=== PATIENT | male | born 1940 | race Caucasian/White ===

== ENCOUNTER 2018-03-14 02:06 | Inpatient (IN) | payer SELFPAY ==
[~2018-03-14] VITALS: Ht 172.7 cm; Wt 76.2 kg
[~2018-03-14 02:06] MED LIST: ATORVASTATIN CA10 MG PO; VIAGRA50 MG PO
--- NOTE | 2018-03-14 02:42 | Emergency Room Report ---
History of Present Illness General Chief Complaint: Headache Source: Patient Present Illness HPI Patient is 77-year-old male who presented after increased headache. The patient reports having onset approximately 5:00 in the morning approximately 20 hours prior to arrival. He reports having prior history of COPD. The patient is also diabetic. He reports having worsening headache. The patient's states that he had been increasingly confused. The patient continues to be a smoker. He reportedly had a prior lung surgery with resection. Patient is followed by Dr. Ángel Link patient is able to state with is doctor is. The patient had prior history of transient ischemic attack Allergies: Coded Allergies: No Known Allergies (Unverified , 04/16/12) Patient History Past Medical History: see triage record Reviewed Nursing Documentation: PMH: Agreed; PSxH: Agreed Nursing Documentation-PMH Hx COPD: Yes - UPPER RT LOBE PARTIAL LOBECTOMY Hx Diabetes: Yes Review of Systems All Other Systems: negative except mentioned in HPI Physical Exam Vital Signs Date Time Temp Pulse Resp B/P (MAP) Pulse Ox O2 Delivery O2 Flow Rate FiO2 03/14/18 02:16 98.1 88 16 204/ 97 Room Air Sp02 EP Interpretation: reviewed, normal General Appearance: normal inspection, alert, GCS 15, Chronically Ill Head: atraumatic ENT: normal ENT inspection, hearing grossly normal, normal voice Neck: normal inspection, full range of motion, supple, no bony tend Respiratory: normal inspection, no respiratory distress, no retraction, wheezing Cardiovascular #1: regular rate, rhythm, no edema Gastrointestinal: normal inspection, normal bowel sounds, non tender, soft, no guarding, no hernia Genitourinary: no CVA tenderness Musculoskeletal: normal inspection, back normal, normal range of motion Neurologic: normal inspection, alert, responsive, speech normal Psychiatric: normal inspection, judgement/insight normal, mood/affect normal Skin: normal inspection, normal color, no rash Medical Decision Making Diagnostic Impression: Primary Impression: Altered mental status ER Course Patient was in for altered mental status. Differential diagnosis included but was not limited to ischemic stroke, subarachnoid hemorrhage, hypoglycemia, spinal cord injury, neurodegenerative disorder, urinary tract infection, hypoxemia.Because of complexity of patient's case laboratory testing and imaging studies were ordered.The patient noted to have severe headache. The patient noted have elevated white blood count.The patient was given IV medications for headache. CT the head read by radiology showed no evidence of acute intracranial hemorrhage or CVA Dr. Luke was contacted for inpatient management due to panel physician. Laboratory Tests Test 03/14/18 18:17 03/15/18 14:50 03/16/18 07:10 Arterial Blood pH 7.438 (7.350-7.450) Arterial Blood Partial Pressure CO2 34.0 mmHg (35.0-45.0) L Arterial Blood Partial Pressure O2 70.3 mmHg (75.0-100.0) L Arterial Blood HCO3 22.5 mmol/L (22.0-26.0) Arterial Blood Oxygen Saturation 93.9 % (95-100) L Arterial Blood Base Excess -1.0 (-2-2) Juan Test Positive C-Reactive Protein, Quantitative < 0.4 mg/dL (0.00-0.90) White Blood Count 14.2 K/UL (4.8-10.8) H Red Blood Count 4.77 M/UL (4.70-6.10) Hemoglobin 14.3 G/DL (14.2-18.0) Hematocrit 42.2 % (42.0-52.0) Mean Corpuscular Volume 88 FL (80-99) Mean Corpuscular Hemoglobin 30.0 PG (27.0-31.0) Mean Corpuscular Hemoglobin Concent 33.9 G/DL (32.0-36.0) Red Cell Distribution Width 11.7 % (11.6-14.8) Platelet Count 372 K/UL (150-450) Mean Platelet Volume 5.1 FL (6.5-10.1) L Neutrophils (%) (Auto) 70.4 % (45.0-75.0) Lymphocytes (%) (Auto) 20.8 % (20.0-45.0) Monocytes (%) (Auto) 8.2 % (1.0-10.0) Eosinophils (%) (Auto) 0.2 % (0.0-3.0) Basophils (%) (Auto) 0.4 % (0.0-2.0) Sodium Level 140 MMOL/L (136-145) Potassium Level 3.3 MMOL/L (3.5-5.1) L Chloride Level 102 MMOL/L (98-107) Carbon Dioxide Level 26 MMOL/L (21-32) Anion Gap 12 mmol/L (5-15) Blood Urea Nitrogen 29 mg/dL (7-18) H Creatinine 1.1 MG/DL (0.55-1.30) Estimate Glomerular Filtration Rate mL/min (>60) Glucose Level 122 MG/DL (74-106) H Hemoglobin A1c 7.3 % (4.3-6.0) H Uric Acid 5.2 MG/DL (2.6-7.2) Calcium Level 9.3 MG/DL (8.5-10.1) Phosphorus Level 3.5 MG/DL (2.5-4.9) Magnesium Level 2.0 MG/DL (1.8-2.4) Total Bilirubin 0.4 MG/DL (0.2-1.0) Aspartate Amino Transferase (AST) 15 U/L (15-37) Alanine Aminotransferase (ALT) 16 U/L (12-78) Alkaline Phosphatase 120 U/L (46-116) H Troponin I 0.017 ng/mL (0.000-0.056) Pro-B-Type Natriuretic Peptide 319 pg/mL (0-125) H Total Protein 7.7 G/DL (6.4-8.2) Albumin 3.4 G/DL (3.4-5.0) Globulin 4.3 g/dL Albumin/Globulin Ratio 0.8 (1.0-2.7) L Triglycerides Level 221 MG/DL (30-150) H Cholesterol Level 252 MG/DL (< 200) H LDL Cholesterol 173 mg/dL (<100) H HDL Cholesterol 40 MG/DL (40-60) Cholesterol/HDL Ratio 6.3 (3.3-4.4) H Vitamin B12 Level 407 PG/ML (193-986) Folate 3.8 NG/ML (8.6-58.9) L Thyroid Stimulating Hormone (TSH) 2.559 uiU/mL (0.358-3.740) EKG Diagnostic Results Rate: normal Rhythm: NSR ST Segments: no acute changes Last Vital Signs Date Time Temp Pulse Resp B/P (MAP) Pulse Ox O2 Delivery O2 Flow Rate FiO2 03/14/18 02:16 98.1 88 16 204/ 97 Room Air Status: unchanged Disposition: ADMITTED INPATIENT Condition: Serious Antonio Hatch MD Mar 14, 2018 02:42
[2018-03-14] MEDS ORDERED: Sodium Chloride 500ML 500 ML IV ONE (02:45)
[2018-03-14] MEDS ORDERED: Albuterol/Ipratropium 3ml neb HHN ONE (02:45)
[2018-03-14] MEDS ORDERED: Dexamethasone 4mg/ml vial IVP ONE (02:45)
[2018-03-14] MEDS ORDERED: Ketorolac 30mg Inj IV ONE (02:45)
[2018-03-14 03:00] VITALS: BP 208/103
[2018-03-14 03:19] LABS: ANION GAP 11 mmol/L (5-15); BLOOD UREA NITROGEN 19 mg/dL (7-18); CALCIUM 9.1 MG/DL (8.5-10.1); CARBON DIOXIDE 26 MMOL/L (21-32); CHLORIDE 101 MMOL/L (98-107); CREATININE 1.3 MG/DL (0.55-1.30); POTASSIUM 3.8 MMOL/L (3.5-5.1); SODIUM 138 MMOL/L (136-145)
[2018-03-14 03:29] LABS: BASOPHILS % (AUTO) 0.4 % (0.0-2.0); EOSINOPHILS % (AUTO) 0.3 % (0.0-3.0); HEMOGLOBIN 14.4 G/DL (14.2-18.0); LYMPHOCYTES % (AUTO) 11.3 % (20.0-45.0); MEAN CORPUSCULAR VOLUME 88 FL (80-99); MONOCYTES % (AUTO) 5.9 % (1.0-10.0); NEUTROPHILS % (AUTO) 82.1 % (45.0-75.0); PLATELET COUNT 382 K/UL (150-450); RED BLOOD COUNT 4.87 M/UL (4.70-6.10); RED CELL DISTRIBUTION WIDTH 11.8 % (11.6-14.8); WHITE BLOOD COUNT 15.7 K/UL (4.8-10.8)
[2018-03-14 03:32] LABS: ALANINE AMINOTRANSFERASE 13 U/L (12-78); ALBUMIN 3.8 G/DL (3.4-5.0); ALBUMIN/GLOBULIN RATIO 0.9 (1.0-2.7); ALKALINE PHOSPHATASE 152 U/L (46-116); ASPARTATE AMINO TRANSFERASE 11 U/L (15-37); BILIRUBIN,TOTAL 0.4 MG/DL (0.2-1.0)
[2018-03-14] MEDS ORDERED: Metoclopramide 10mg/2ml Inj IVP ONE (03:45)
[2018-03-14] MEDS ORDERED: Morphine Sulfate 2mg/ml Inj IVP ONE (03:45)
[2018-03-14] MEDS ORDERED: DiphenhydrAMINE 50mg/ml Inj ONE (03:53)
[2018-03-14] MEDS ORDERED: DiphenhydrAMINE 50mg/ml Inj IVP ONE (04:00)
[2018-03-14 04:07] LABS: APPEARANCE,URINE CLEAR; BILIRUBIN, URINE NEGATIVE (NEGATIVE); COLOR,URINE PALE YELLOW; GLUCOSE, URINE (UA) 1+ (NEGATIVE); KETONES,URINE 2+ (NEGATIVE); LEUKOCYTE ESTERASE ,URINE NEGATIVE (NEGATIVE); NITRITE,URINE NEGATIVE (NEGATIVE); PH,URINE 6 (4.5-8.0); PROTEIN,URINE 2+ (NEGATIVE); UROBILINOGEN,URINE NORMAL MG/DL (0.0-1.0)
[2018-03-14] MEDS ORDERED: cefTRIAXone 1 GM in NS 55 ML IVPB ONE (04:15)
[2018-03-14 05:00] VITALS: BP 176/139
[2018-03-14 06:04] VITALS: BP 164/61
[2018-03-14 06:53] VITALS: BP 155/71
[2018-03-14 07:44] VITALS: BP 160/72
--- NOTE | 2018-03-14 09:55 | Diagnostic Imaging Report ---
Indication: Headache Technique: Contiguous 5 mm thick transaxial imaging of the head obtained in a Siemens Sensation [address] scanner. Soft tissue and bone windows generated. Automatic Exposure Control was utilized. Total Dose length Product (DLP): 1526.[address] Dose Index Volume (CTDIvol): 70.38 mGy Comparison: none Findings: There is mild prominence of the ventricles, basal cisterns, and cerebral sulci consistent with atrophy. Mild, nonspecific, white matter hypoattenuation is noted throughout the brain consistent with chronic small vessel disease. There is no midline shift, edema, acute hemorrhage, mass effect, or abnormal extra-axial fluid collections. Bones and extra osseous soft tissues are unremarkable. Impression: No acute intracranial bleed, mass effect or edema. Mild atrophy of the brain. Nonspecific white matter hypoattenuation probably due to chronic small vessel disease. The study is significantly limited by motion. [facility] has communicated the preliminary results to the Emergency Department. Their findings are largely concordant with this report. The CT scanner at [facility] is accredited by the [employer] and the scans are performed using dose optimization techniques as appropriate to a performed exam including Automatic Exposure control.
[2018-03-14] MEDS ORDERED: Azithromycin 250mg tab ORAL SCH (10:21)
--- NOTE | 2018-03-14 10:36 | Consultation ---
Consult Note Consult Note asked to eval for management of high BP and proteinuria Patient is 77-year-old male who presented after increased headache. The patient reports having onset approximately 5:00 in the morning approximately 20 hours prior to arrival. He reports having prior history of COPD. The patient is also diabetic. He reports having worsening headache. The patient's states that he had been increasingly confused. The patient continues to be a smoker. He reportedly had a prior lung surgery with resection. Patient is followed by Dr. Ángel Link patient is able to state with is doctor is. The patient had prior history of transient ischemic attack Hx COPD: Yes - UPPER RT LOBE PARTIAL LOBECTOMY Hx Diabetes: Yes Assessment/Plan exacerbation COPD DM HTN ooc Proteinuria (DM / HTN related) h/o TIA Norvasc for bp CXR asa protonix perorders José Antonio Forrest MD Mar 14, 2018 10:35
[2018-03-14] MEDS ORDERED: HydrALAZINE 25mg tab ORAL PRN (10:45)
[2018-03-14] MEDS: Aspirin Baby 81mg ORAL SCH (10:48)
--- NOTE | 2018-03-14 11:44 | Diagnostic Imaging Report ---
Indication: Dyspnea Comparison: None A single view chest radiograph was obtained. Findings: No definite infiltrate or pulmonary vascular congestion identified. The heart is borderline enlarged. The aorta is mildly enlarged consistent with atherosclerotic vascular disease. The bones are osteopenic. Impression: No acute disease
[2018-03-14] MEDS ORDERED: LORazepam Inj 2mg/ml 1ml IV PRN (12:45)
[2018-03-14] MEDS: LORazepam Inj 2mg/ml 1ml IV PRN ×2 (13:14→22:15)
[2018-03-14] MEDS: Haloperidol 5mg/ml Inj IM PRN ×2 (13:14→23:43)
[2018-03-14] MEDS ORDERED: Morphine Sulfate 2mg/ml Inj IVP PRN (13:35)
--- NOTE | 2018-03-14 13:51 | Consultation ---
History of Present Illness General Date patient seen: Mar 14, 2018 Chief Complaint: Headache Present Illness HPI 77-year-old male who presented after increased headache. the pt has hx of stroke. the pt was agitated and combative The patient reports having onset approximately 5:00 in the morning approximately 20 hours prior to arrival. He reports having prior history of COPD. The patient is also diabetic. He reports having worsening headache. The patient's states that he had been increasingly confused. Allergies: Coded Allergies: No Known Allergies (Unverified , 04/16/12) Medication History Scheduled Atorvastatin Calcium* (Lipitor*), 10 MG PO QHS, (Reported) Sildenafil Citrate (Viagra), 50 MG PO DAILY, (Reported) Patient History Limited by: medical condition History Provided By: Patient, Family Member, Medical Record, PMD Healthcare decision maker Resuscitation status Advanced Directive on File Past Medical/Surgical History Past Medical/Surgical History: (1) Altered mental status Review of Systems Psychiatric: Reports: prior hx, anxiety, depressed feelings, emotional problems , hallucinations Physical Exam General Appearance: alert, confused, moderate distress, agitated Neurologic: oriented x 3, responsive, depressed affect Last 24 Hour Vital Signs Date Time Temp Pulse Resp B/P (MAP) Pulse Ox O2 Delivery O2 Flow Rate FiO2 03/14/18 11:19 98.0 03/14/18 10:48 86 158/94 03/14/18 08:00 83 03/14/18 07:44 98.0 81 20 160/72 100 Room Air 03/14/18 06:53 97.4 69 18 155/71 100 Room Air 03/14/18 06:50 98.2 69 18 154/71 100 Room Air 03/14/18 06:04 98.4 79 20 164/61 100 Room Air 03/14/18 05:00 98.4 88 20 176/139 100 Room Air 03/14/18 03:00 98.1 87 20 208/103 99 Room Air 03/14/18 02:55 204/103 03/14/18 02:50 86 20 99 Room Air 21 03/14/18 02:40 84 20 Room Air 21 03/14/18 02:40 84 20 97 Room Air 21 03/14/18 02:16 98.1 88 16 204/83 97 Room Air Laboratory Tests Test 03/14/18 02:50 03/14/18 04:01 White Blood Count 15.7 K/UL (4.8-10.8) H Red Blood Count 4.87 M/UL (4.70-6.10) Hemoglobin 14.4 G/DL (14.2-18.0) Hematocrit 43.0 % (42.0-52.0) Mean Corpuscular Volume 88 FL (80-99) Mean Corpuscular Hemoglobin 29.6 PG (27.0-31.0) Mean Corpuscular Hemoglobin Concent 33.5 G/DL (32.0-36.0) Red Cell Distribution Width 11.8 % (11.6-14.8) Platelet Count 382 K/UL (150-450) Mean Platelet Volume 5.5 FL (6.5-10.1) L Neutrophils (%) (Auto) 82.1 % (45.0-75.0) H Lymphocytes (%) (Auto) 11.3 % (20.0-45.0) L Monocytes (%) (Auto) 5.9 % (1.0-10.0) Eosinophils (%) (Auto) 0.3 % (0.0-3.0) Basophils (%) (Auto) 0.4 % (0.0-2.0) Erythrocyte Sedimentation Rate 15 MM/HR (0-20) Prothrombin Time 10.6 SEC (9.30-11.50) Prothromb Time International Ratio 1.0 (0.9-1.1) Activated Partial Thromboplast Time 31 SEC (23-33) Sodium Level 138 MMOL/L (136-145) Potassium Level 3.8 MMOL/L (3.5-5.1) Chloride Level 101 MMOL/L (98-107) Carbon Dioxide Level 26 MMOL/L (21-32) Anion Gap 11 mmol/L (5-15) Blood Urea Nitrogen 19 mg/dL (7-18) H Creatinine 1.3 MG/DL (0.55-1.30) Estimat Glomerular Filtration Rate mL/min (>60) Glucose Level 158 MG/DL (74-106) H Calcium Level 9.1 MG/DL (8.5-10.1) Total Bilirubin 0.4 MG/DL (0.2-1.0) Aspartate Amino Transf (AST/SGOT) 11 U/L (15-37) L Alanine Aminotransferase (ALT/SGPT) 13 U/L (12-78) Alkaline Phosphatase 152 U/L (46-116) H Troponin I 0.000 ng/mL (0.000-0.056) Total Protein 8.2 G/DL (6.4-8.2) Albumin 3.8 G/DL (3.4-5.0) Globulin 4.4 g/dL Albumin/Globulin Ratio 0.9 (1.0-2.7) L Thyroid Stimulating Hormone (TSH) 1.048 uiU/mL (0.358-3.740) Urine Color Pale yellow Urine Appearance Clear Urine pH 6 (4.5-8.0) Urine Specific [place] 1.020 (1.005-1.035) Urine Protein 2+ (NEGATIVE) H Urine Glucose (UA) 1+ (NEGATIVE) H Urine Ketones 2+ (NEGATIVE) H Urine Blood 1+ (NEGATIVE) H Urine Nitrite Negative (NEGATIVE) Urine Bilirubin Negative (NEGATIVE) Urine Urobilinogen Normal MG/DL (0.0-1.0) Urine Leukocyte Esterase Negative (NEGATIVE) Urine RBC 2-4 /HPF (0 - 0) H Urine WBC 0-2 /HPF (0 - 0) Urine Squamous Epithelial Cells None /LPF (NONE/OCC) Urine Bacteria None /HPF (NONE) Urine Opiates Screen Positive (NEGATIVE) H Urine Barbiturates Screen Negative (NEGATIVE) Phencyclidine (PCP) Screen Negative (NEGATIVE) Urine Amphetamines Screen Negative (NEGATIVE) Urine Benzodiazepines Screen Negative (NEGATIVE) Urine Cocaine Screen Negative (NEGATIVE) Urine Marijuana (THC) Screen Negative (NEGATIVE) Microbiology Date/Time Source Procedure Growth Status 03/14/18 03:55 Nasal Nares Influenza Types A,B Antigen (SANDI) - Final Complete Height (Feet): 5 Height (Inches): 8.00 Weight (Pounds): 168 Medications Current Medications Medications (Trade) Dose Ordered Sig/Jatinder Route PRN Reason Start Time Stop Time Status Last Admin Dose Admin Acetaminophen (Tylenol) 650 mg Q4H PRN ORAL Mild Pain/Temp > 100.5 03/14/18 10:30 04/13/18 10:29 03/14/18 10:49 Amlodipine Besylate (Norvasc) 10 mg DAILY ORAL 03/15/18 09:00 04/14/18 08:59 Aspirin (ASA) 81 mg DAILY ORAL 03/14/18 10:38 04/13/18 10:37 03/14/18 10:48 Azithromycin (Zithromax) 250 mg DAILY ORAL 03/15/18 09:00 03/22/18 08:59 Ceftriaxone Sodium 1 gm/ Dextrose 55 ml @ 110 mls/hr Q24H IVPB 03/15/18 05:00 03/22/18 04:59 Dextrose (Dextrose 50%) 25 ml Q30M PRN IV Hypoglycemia 03/14/18 13:45 04/13/18 13:44 Dextrose (Dextrose 50%) 50 ml Q30M PRN IV Hypoglycemia 03/14/18 13:45 04/13/18 13:44 Haloperidol Lactate (Haldol) 5 mg Q6H PRN IM Agitation 03/14/18 12:44 04/13/18 12:43 03/14/18 13:14 Hydralazine HCl (Apresoline) 25 mg Q4H PRN ORAL bp over 160 syst 03/14/18 10:45 04/13/18 10:44 Insulin Aspart (NovoLOG) BEFORE MEALS AND HS SUBQ 03/14/18 16:30 04/13/18 16:29 Lorazepam (Ativan 2mg/ml 1ml) 2 mg Q4H PRN IV For Anxiety 03/14/18 13:00 03/21/18 12:59 03/14/18 13:14 Morphine Sulfate (Morphine Sulfate) 1 mg Q4H PRN IVP Severe Pain (Pain Scale 7-10) 03/14/18 13:35 03/21/18 13:34 Pantoprazole (Protonix) 40 mg EVERY 12 HOURS ORAL 03/14/18 21:00 04/13/18 20:59 Tamsulosin HCl (Flomax) 0.4 mg BEDTIME ORAL 03/14/18 21:00 04/13/18 20:59 Assessment/Plan Problem List: (1) encephalopathy due to toxin Status: stable Assessment/Plan haldol prn ativan prn risperdal 1mg po qhs mri of brain without contrast My Galindo MD Mar 14, 2018 13:51
--- NOTE | 2018-03-14 15:42 | Diagnostic Imaging Report ---
Indication: Altered level of consciousness Technique: The head was imaged in a 1.5 Suni magnet. Sequences obtained include sagittal and axial T1 FLAIR, axial T2 fast spin echo with fat saturation, axial T2 FLAIR, diffusion and ADC map. Comparison: None Findings: There is mild prominence of the sulci, ventricles, and basal cisterns consistent with atrophy. Mild, nonspecific T2 hyperintensity noted within white matter. This may be due to chronic small vessel disease. There is no restricted diffusion. Presley-white differentiation is normal. There is no mass effect, midline shift, edema, or hemorrhage. There are no abnormal extra-axial or intra-axial fluid collections. The corpus callosum and sella are unremarkable. The brainstem and cerebellum are unremarkable. Bone marrow signal within the visualized osseous structures appears age appropriate and unremarkable otherwise. There is a fluid retention cyst in the lower part of the left maxillary antrum. There is mucosal thickening in the ethmoid sinus. Impression: No acute intracranial findings. Mild atrophy and evidence of chronic small vessel disease involving white matter tracts. Sinusitis
[2018-03-14] MEDS: NovoLOG Insulin Flexpen SUBQ SCH ×2 (16:30→21:00)
[2018-03-14] MEDS ORDERED: Albuterol/Ipratropium 3ml neb HHN PRN (18:30)
--- NOTE | 2018-03-14 19:00 | Consultation ---
DATE OF CONSULTATION: 03/14/2018 INFECTIOUS DISEASES CONSULTATION CONSULTING PHYSICIAN: Bishnu Bhat M.D. PRIMARY ATTENDING PHYSICIAN: Morales Tejeda M.D. REASON FOR CONSULTATION: Leukocytosis, chronic obstructive pulmonary disease exacerbation, headache. HISTORY OF PRESENT ILLNESS: The patient is a 77-year-old white male admitted today from home complaining of headache in frontal area and altered mental status. The patient has history of headache and sinusitis before, but this time the pain is more than usual. He has history of smoking and is a current smoker. PAST MEDICAL HISTORY: Significant for COPD, diabetes mellitus, nicotine dependence, has history of lung surgery, partial lobectomy in right lung. ALLERGIES: No known drug allergy. MEDICATIONS: Getting ceftriaxone, metoclopramide,morphine, albuterol, ipratropium inhaler, dexamethasone, all of this medication was given in ER. SOCIAL HISTORY: . Smoker. Lives at home REVIEW OF SYSTEMS: The patient has frontal headache, difficulty breathing from the nose. No fever. No chills. Occasional coughing. No chest pain. No nausea. No vomiting. Seems agitated and slightly confused. PHYSICAL EXAMINATION: VITAL SIGNS: Temperature 98, blood pressure 160/72, pulse 81. GENERAL APPEARANCE: No acute distress. Seems to have normal weight. HEAD AND NECK: He has poor dentition. Has hypertrophy of nasal mucosa. LUNGS: Clear, but bilaterally there are decreased sounds on expansion. Heart has normal rate. ABDOMEN: Soft and nontender. EXTREMITIES: No edema. LABORATORY AND DIAGNOSTIC DATA: WBC 15.7, hemoglobin 14.4, hematocrit 82. Sodium 138, potassium 3.8, chloride 101, bicarbonate 26, BUN 19, creatinine 1.3, and glucose 158. Toxicology was positive for opiates. There was a head CT scan that was suboptimal because of the patient movement, has no intracranial bleeding, mass effect, or edema. IMPRESSION: 1. Leukocytosis. 2. The patient may have COPD exacerbation or pneumonia. The patient has a normal chest x-ray. 3. Headache, may have sinusitis. 4. Diabetes mellitus. 5. COPD. 6. Nicotine dependence. RECOMMENDATION: We will give the patient Rocephin and Zithromax. We will follow up the culture. At the end of my exam, I thank Dr. Tejeda for involving me in the care of this patient. Bishnu Bhat M.D. DR: Kervin JOB#: [id number] CC: DANIAL
[2018-03-14] MEDS: Albuterol/Ipratropium 3ml neb HHN SCH (19:42)
[2018-03-14 20:00] VITALS: BP 160/80
[2018-03-14] MEDS: Tamsulosin 0.4mg cap ORAL SCH (21:00)
--- NOTE | 2018-03-14 23:45 | History and Physical Report ---
DATE OF ADMISSION: 03/14/2018 HISTORY OF PRESENT ILLNESS: The patient is very confused, so the history is obtained from the at the bedside. According to the , the patient basically had all of sudden very confused and complaining of severe headache since Monday, very confused and coughing. According to the patient, the patient basically does not have dementia. The CT scan on the preliminary report shows brain atrophy. 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 The patient also had CVA five years ago. Cannot get any history from the patient. The patient is very agitated and confused. Ambulatory otherwise. Sitter is ordered. is at the bedside. Cannot get any history from the patient. Again, the only thing that she has been complaining is the headache. No abdominal pain. No shortness of breath. Coughing because most likely the patient has COPD, he is a heavy smoker. No wheezing. No orthopnea. No chest pain. No abdominal pain. Denies any pain in the lower extremities. Denies fever or chills. PAST MEDICAL HISTORY: Hyperlipidemia, history of NIDDM, history of hypertension, hyperlipidemia, degenerative joint disease, COPD, history of skin cancer, and CVA. PAST SURGICAL HISTORY: Removal of skin cancer and surgery in the lower legs for blocked vein. MEDICATIONS: Lipitor. We are not certain about the rest of the medication. The patient is very confused. ALLERGIES: No known allergies. FAMILY HISTORY: Noncontributory. SOCIAL HISTORY: The patient is a heavy smoker. No history of alcohol or illicit drugs. 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 REVIEW OF SYSTEMS: Unable to obtain. Very poor historian at this point and confused. PHYSICAL EXAMINATION: VITAL SIGNS: Temperature 98.2, pulse is 69, and blood pressure 154/71. HEENT: PERRLA. NECK: Supple. No lymphadenopathy. CHEST: Clear to auscultation. CARDIOVASCULAR: Regular rate and rhythm. No murmurs or extra sounds. GASTROINTESTINAL: Soft, nontender, and nondistended. No organomegaly. EXTREMITIES: No edema. Moves all four extremities. Oriented to name only. Very confused. Otherwise is ambulatory. Motor strength is good. No obvious motor deficits at this point. The patient is ambulatory. No stuttered speech. No facial drooping either. No paresthesias. ASSESSMENT: 1. Altered mental status. 2. Acute headache. 3. Elevated WBC. PLAN: I am going to ask Dr. Lynn to see the patient. If Dr. Lynn will be willing to see this patient, I am going to ask him for consultation, as well as Dr. Forrest, Dr. Bishnu Bhat, and Dr. Galindo have been also consulted and a sitter has been ordered as well. Dr. Marquez for pain management. Dr. Forrest, Dr. Bishnu Bhat, Dr. Galindo, Dr. Guzman, and Dr. Casanova as well have been consulted for the management of COPD as well as NIDDM as well as for confusion as well as to rule out any infectious etiology as well as for fluid management and pain management. Morales Tejeda M.D. DR: SUSI JOB#: [id number] CC:
[2018-03-15] MEDS: Albuterol/Ipratropium 3ml neb HHN SCH ×4 (01:35→19:34)
[2018-03-15 04:00] VITALS: BP 123/67
[2018-03-15] MEDS: cefTRIAXone 1 GM in D5W 55 ML IVPB SCH (05:27)
[2018-03-15] MEDS: NovoLOG Insulin Flexpen SUBQ SCH ×4 (06:30→21:01)
[2018-03-15 08:00] VITALS: BP 160/83
[2018-03-15] MEDS: Aspirin Baby 81mg ORAL SCH (08:29)
[2018-03-15] MEDS: Azithromycin 250mg tab ORAL SCH (08:29)
--- NOTE | 2018-03-15 09:57 | Consultation ---
History of Present Illness General Date patient seen: Mar 15, 2018 Chief Complaint: Present Illness Allergies: Coded Allergies: No Known Allergies (Unverified , 04/16/12) Medication History Scheduled Atorvastatin Calcium* (Lipitor*), 10 MG PO QHS, (Reported) Sildenafil Citrate (Viagra), 50 MG PO DAILY, (Reported) Patient History Healthcare decision maker Resuscitation status Full Code Advanced Directive on File No Physical Exam Last 24 Hour Vital Signs Date Time Temp Pulse Resp B/P (MAP) Pulse Ox O2 Delivery O2 Flow Rate FiO2 03/15/18 08:30 72 160/83 03/15/18 08:11 77 18 98 Room Air 21 03/15/18 08:05 79 16 97 Room Air 21 03/15/18 04:00 75 03/15/18 04:00 97.0 74 18 123/67 (85) 93 03/15/18 01:43 70 18 98 Room Air 21 03/15/18 01:30 68 16 95 Room Air 21 03/15/18 00:00 78 03/14/18 21:00 Room Air 03/14/18 20:00 66 03/14/18 20:00 97.0 70 18 160/80 (106) 95 03/14/18 19:50 89 18 99 Room Air 21 03/14/18 19:43 77 18 96 Room Air 21 03/14/18 16:00 72 03/14/18 11:19 98.0 03/14/18 10:48 86 158/94 Laboratory Tests Test 03/14/18 18:17 Arterial Blood pH 7.438 (7.350-7.450) Arterial Blood Partial Pressure CO2 34.0 mmHg (35.0-45.0) L Arterial Blood Partial Pressure O2 70.3 mmHg (75.0-100.0) L Arterial Blood HCO3 22.5 mmol/L (22.0-26.0) Arterial Blood Oxygen Saturation 93.9 % (95-100) L Arterial Blood Base Excess -1.0 (-2-2) Juan Test Positive Height (Feet): 5 Height (Inches): 8.00 Weight (Pounds): 168 Medications Current Medications Medications (Trade) Dose Ordered Sig/Jatinder Route PRN Reason Start Time Stop Time Status Last Admin Dose Admin Acetaminophen (Tylenol) 650 mg Q4H PRN ORAL Mild Pain/Temp > 100.5 03/14/18 10:30 04/13/18 10:29 03/14/18 10:49 Albuterol/ Ipratropium (Albuterol/ Ipratropium) 3 ml Q4H PRN HHN Shortness of Breath 03/14/18 18:30 03/19/18 18:29 Albuterol/ Ipratropium (Albuterol/ Ipratropium) 3 ml Q6HRT HHN 03/14/18 19:00 03/19/18 18:59 03/15/18 08:05 Amlodipine Besylate (Norvasc) 10 mg DAILY ORAL 03/15/18 09:00 04/14/18 08:59 03/15/18 08:30 Aspirin (ASA) 81 mg DAILY ORAL 03/14/18 10:38 04/13/18 10:37 03/15/18 08:29 Azithromycin (Zithromax) 250 mg DAILY ORAL 03/15/18 09:00 03/22/18 08:59 03/15/18 08:29 Ceftriaxone Sodium 1 gm/ Dextrose 55 ml @ 110 mls/hr Q24H IVPB 03/15/18 05:00 03/22/18 04:59 03/15/18 05:27 Dextrose (Dextrose 50%) 25 ml Q30M PRN IV Hypoglycemia 03/14/18 13:45 04/13/18 13:44 Dextrose (Dextrose 50%) 50 ml Q30M PRN IV Hypoglycemia 03/14/18 13:45 04/13/18 13:44 Haloperidol Lactate (Haldol) 5 mg Q6H PRN IM Agitation 03/14/18 12:44 04/13/18 12:43 03/14/18 23:43 Hydralazine HCl (Apresoline) 25 mg Q4H PRN ORAL bp over 160 syst 03/14/18 10:45 04/13/18 10:44 Insulin Aspart (NovoLOG) BEFORE MEALS AND HS SUBQ 03/14/18 16:30 04/13/18 16:29 03/15/18 06:30 Lorazepam (Ativan 2mg/ml 1ml) 2 mg Q4H PRN IV For Anxiety 03/14/18 13:00 03/21/18 12:59 03/14/18 22:15 Morphine Sulfate (Morphine Sulfate) 1 mg Q4H PRN IVP Severe Pain (Pain Scale 7-10) 03/14/18 13:35 03/21/18 13:34 Pantoprazole (Protonix) 40 mg EVERY 12 HOURS ORAL 03/14/18 21:00 04/13/18 20:59 03/15/18 08:29 Prednisone (predniSONE) 40 mg DAILY ORAL 03/15/18 09:00 04/14/18 08:59 03/15/18 08:29 Risperidone (RisperDAL) 1 mg BEDTIME ORAL 03/14/18 21:00 04/13/18 20:59 Tamsulosin HCl (Flomax) 0.4 mg BEDTIME ORAL 03/14/18 21:00 04/13/18 20:59 Assessment/Plan Assessment/Plan (1) Acute Headache (2) Alerted mental status seen dictated Vincent Parsons Mar 15, 2018 09:57
--- NOTE | 2018-03-15 11:53 | Infectious Diseases Prog Note ---
Assessment/Plan Assessment/Plan A; 1. Leukocytosis. 2. COPD exacerbation 3. Headache,resolved 4. Diabetes mellitus. 5. COPD. 6. Nicotine dependence. 7. Hypoxemia P; Continue Rocephin & Zithromax F/U CBC Subjective ROS Limited/Unobtainable: Yes Constitutional: Reports: no symptoms Neurologic: Reports: other - agitated on restraint Allergies: Coded Allergies: No Known Allergies (Unverified , 04/16/12) Objective Vital Signs Last 24 Hour Vital Signs Date Time Temp Pulse Resp B/P (MAP) Pulse Ox O2 Delivery O2 Flow Rate FiO2 03/15/18 09:00 Room Air 03/15/18 08:30 72 160/83 03/15/18 08:11 77 18 98 Room Air 21 03/15/18 08:05 79 16 97 Room Air 21 03/15/18 08:00 97.5 70 20 160/83 (108) 98 03/15/18 08:00 74 03/15/18 04:00 75 03/15/18 04:00 97.0 74 18 123/67 (85) 93 03/15/18 01:43 70 18 98 Room Air 21 03/15/18 01:30 68 16 95 Room Air 21 03/15/18 00:00 78 03/14/18 21:00 Room Air 03/14/18 20:00 66 03/14/18 20:00 97.0 70 18 160/80 (106) 95 03/14/18 19:50 89 18 99 Room Air 21 03/14/18 19:43 77 18 96 Room Air 21 03/14/18 16:00 72 Height (Feet): 5 Height (Inches): 8.00 Weight (Pounds): 168 General Appearance: no acute distress Respiratory/Chest: lungs clear Cardiovascular: normal rate Abdomen: soft, non tender Extremities: no edema Neurologic/Psychiatric: other - sleeping Microbiology Date/Time Source Procedure Growth Status 03/14/18 03:55 Nasal Nares Influenza Types A,B Antigen (SANDI) - Final Complete Laboratory Tests Test 03/14/18 18:17 Arterial Blood pH 7.438 (7.350-7.450) Arterial Blood Partial Pressure CO2 34.0 mmHg (35.0-45.0) L Arterial Blood Partial Pressure O2 70.3 mmHg (75.0-100.0) L Arterial Blood HCO3 22.5 mmol/L (22.0-26.0) Arterial Blood Oxygen Saturation 93.9 % (95-100) L Arterial Blood Base Excess -1.0 (-2-2) Juan Test Positive Current Medications Medications (Trade) Dose Ordered Sig/Jatinder Route PRN Reason Start Time Stop Time Status Last Admin Dose Admin Acetaminophen (Tylenol) 650 mg Q4H PRN ORAL Mild Pain/Temp > 100.5 03/14/18 10:30 04/13/18 10:29 03/14/18 10:49 Albuterol/ Ipratropium (Albuterol/ Ipratropium) 3 ml Q4H PRN HHN Shortness of Breath 03/14/18 18:30 03/19/18 18:29 Albuterol/ Ipratropium (Albuterol/ Ipratropium) 3 ml Q6HRT HHN 03/14/18 19:00 03/19/18 18:59 03/15/18 08:05 Amlodipine Besylate (Norvasc) 10 mg DAILY ORAL 03/15/18 09:00 04/14/18 08:59 03/15/18 08:30 Aspirin (ASA) 81 mg DAILY ORAL 03/14/18 10:38 04/13/18 10:37 03/15/18 08:29 Azithromycin (Zithromax) 250 mg DAILY ORAL 03/15/18 09:00 03/22/18 08:59 03/15/18 08:29 Ceftriaxone Sodium 1 gm/ Dextrose 55 ml @ 110 mls/hr Q24H IVPB 03/15/18 05:00 03/22/18 04:59 03/15/18 05:27 Dextrose (Dextrose 50%) 25 ml Q30M PRN IV Hypoglycemia 03/14/18 13:45 04/13/18 13:44 Dextrose (Dextrose 50%) 50 ml Q30M PRN IV Hypoglycemia 03/14/18 13:45 04/13/18 13:44 Haloperidol Lactate (Haldol) 5 mg Q6H PRN IM Agitation 03/14/18 12:44 04/13/18 12:43 03/14/18 23:43 Hydralazine HCl (Apresoline) 25 mg Q4H PRN ORAL bp over 160 syst 03/14/18 10:45 04/13/18 10:44 Insulin Aspart (NovoLOG) BEFORE MEALS AND HS SUBQ 03/14/18 16:30 04/13/18 16:29 03/15/18 06:30 Lorazepam (Ativan 2mg/ml 1ml) 2 mg Q4H PRN IV For Anxiety 03/14/18 13:00 03/21/18 12:59 03/14/18 22:15 Pantoprazole (Protonix) 40 mg EVERY 12 HOURS ORAL 03/14/18 21:00 04/13/18 20:59 03/15/18 08:29 Prednisone (predniSONE) 40 mg DAILY ORAL 03/15/18 09:00 04/14/18 08:59 03/15/18 08:29 Risperidone (RisperDAL) 1 mg BEDTIME ORAL 03/14/18 21:00 04/13/18 20:59 Tamsulosin HCl (Flomax) 0.4 mg BEDTIME ORAL 03/14/18 21:00 04/13/18 20:59 Bishnu Bhat MD Mar 15, 2018 11:53
[2018-03-15 12:00] VITALS: BP 158/90
--- NOTE | 2018-03-15 12:30 | General Progress Note ---
Assessment/Plan Problem List: (1) Altered mental status ICD Codes: R41.82 - Altered mental status, unspecified SNOMED: 066385723 (2) encephalopathy due to toxin Status: progressing Assessment/Plan more alert confused yesterday mri ordered ct brain showed atrophy ambulatory Subjective ROS Limited/Unobtainable: Yes Allergies: Coded Allergies: No Known Allergies (Unverified , 04/16/12) Objective Last 24 Hour Vital Signs Date Time Temp Pulse Resp B/P (MAP) Pulse Ox O2 Delivery O2 Flow Rate FiO2 03/15/18 09:00 Room Air 03/15/18 08:30 72 160/83 03/15/18 08:11 77 18 98 Room Air 21 03/15/18 08:05 79 16 97 Room Air 21 03/15/18 08:00 97.5 70 20 160/83 (108) 98 03/15/18 08:00 74 03/15/18 04:00 75 03/15/18 04:00 97.0 74 18 123/67 (85) 93 03/15/18 01:43 70 18 98 Room Air 21 03/15/18 01:30 68 16 95 Room Air 21 03/15/18 00:00 78 03/14/18 21:00 Room Air 03/14/18 20:00 66 03/14/18 20:00 97.0 70 18 160/80 (106) 95 03/14/18 19:50 89 18 99 Room Air 21 03/14/18 19:43 77 18 96 Room Air 21 03/14/18 16:00 72 Laboratory Tests 03/14/18 18:17: Arterial Blood pH 7.438, Arterial Blood Partial Pressure CO2 34.0L, Arterial Blood Partial Pressure O2 70.3L, Arterial Blood HCO3 22.5, Arterial Blood Oxygen Saturation 93.9L, Arterial Blood Base Excess -1.0, Juan Test Positive Height (Feet): 5 Height (Inches): 8.00 Weight (Pounds): 168 General Appearance: confused Respiratory/Chest: lungs clear Abdomen: soft Morales Tejeda MD Mar 15, 2018 12:30
[2018-03-15] MEDS ORDERED: Lisinopril 10mg tab ORAL SCH (12:41)
--- NOTE | 2018-03-15 12:43 | Nephrology Progress Note ---
Assessment/Plan Problem List: (1) COPD exacerbation (2) Proteinuria (3) Diabetes (4) Hypertension Assessment exacerbation COPD DM HTN ooc Proteinuria (DM / HTN related) h/o TIA Plan Norvasc for bp add zestril lower prednisone CXR asa protonix perorders Subjective ROS Limited/Unobtainable: No Constitutional: Reports: weakness Objective Objective Last 24 Hour Vital Signs Date Time Temp Pulse Resp B/P (MAP) Pulse Ox O2 Delivery O2 Flow Rate FiO2 03/15/18 09:00 Room Air 03/15/18 08:30 72 160/83 03/15/18 08:11 77 18 98 Room Air 21 03/15/18 08:05 79 16 97 Room Air 21 03/15/18 08:00 97.5 70 20 160/83 (108) 98 03/15/18 08:00 74 03/15/18 04:00 75 03/15/18 04:00 97.0 74 18 123/67 (85) 93 03/15/18 01:43 70 18 98 Room Air 21 03/15/18 01:30 68 16 95 Room Air 21 03/15/18 00:00 78 03/14/18 21:00 Room Air 03/14/18 20:00 66 03/14/18 20:00 97.0 70 18 160/80 (106) 95 03/14/18 19:50 89 18 99 Room Air 21 03/14/18 19:43 77 18 96 Room Air 21 03/14/18 16:00 72 Laboratory Tests 03/14/18 18:17: Arterial Blood pH 7.438, Arterial Blood Partial Pressure CO2 34.0L, Arterial Blood Partial Pressure O2 70.3L, Arterial Blood HCO3 22.5, Arterial Blood Oxygen Saturation 93.9L, Arterial Blood Base Excess -1.0, Juan Test Positive Height (Feet): 5 Height (Inches): 8.00 Weight (Pounds): 168 General Appearance: no apparent distress Cardiovascular: normal rate Respiratory/Chest: decreased breath sounds Abdomen: soft José Antonio Forrest MD Mar 15, 2018 12:43
--- NOTE | 2018-03-15 13:24 | Consultation ---
Consult Note Consult Note DICT [id number] Nas Casanova MD Mar 15, 2018 13:24
--- NOTE | 2018-03-15 13:59 | Diagnostic Imaging Report ---
Indication: Cough Technique: One view of the chest Comparison: 03/06/2018 Findings: Lungs and pleural spaces are clear. Heart size is normal. There is thoracic scoliotic deformity. Surgical clips are seen in the right hilar region. No significant interim change Impression: No acute process
--- NOTE | 2018-03-15 14:52 | Cardiac Electrophysiology PN ---
Subjective Subjective [id number] Objective Last 24 Hour Vital Signs Date Time Temp Pulse Resp B/P (MAP) Pulse Ox O2 Delivery O2 Flow Rate FiO2 03/15/18 13:32 86 20 99 Room Air 21 03/15/18 13:25 72 18 96 Room Air 21 03/15/18 13:00 158/90 03/15/18 12:00 75 03/15/18 12:00 97.7 79 20 158/90 (112) 98 03/15/18 09:00 Room Air 03/15/18 08:30 72 160/83 03/15/18 08:11 77 18 98 Room Air 21 03/15/18 08:05 79 16 97 Room Air 21 03/15/18 08:00 97.5 70 20 160/83 (108) 98 03/15/18 08:00 74 03/15/18 04:00 75 03/15/18 04:00 97.0 74 18 123/67 (85) 93 03/15/18 01:43 70 18 98 Room Air 21 03/15/18 01:30 68 16 95 Room Air 21 03/15/18 00:00 78 03/14/18 21:00 Room Air 03/14/18 20:00 66 03/14/18 20:00 97.0 70 18 160/80 (106) 95 03/14/18 19:50 89 18 99 Room Air 03/14/18 19:43 77 18 96 Room Air 21 03/14/18 16:00 72 Intake and Output 03/14/18 03/15/18 18:59 06:59 # Voids 5 2 Laboratory Tests Test 03/14/18 18:17 Arterial Blood pH 7.438 (7.350-7.450) Arterial Blood Partial Pressure CO2 34.0 mmHg (35.0-45.0) L Arterial Blood Partial Pressure O2 70.3 mmHg (75.0-100.0) L Arterial Blood HCO3 22.5 mmol/L (22.0-26.0) Arterial Blood Oxygen Saturation 93.9 % (95-100) L Arterial Blood Base Excess -1.0 (-2-2) Juan Test Positive Microbiology Date/Time Source Procedure Growth Status 03/14/18 03:55 Nasal Nares Influenza Types A,B Antigen (SANDI) - Final Complete Roni Horn MD Mar 15, 2018 14:52
[2018-03-15 16:00] VITALS: BP 120/71
--- NOTE | 2018-03-15 17:15 | Consultation ---
DATE OF CONSULTATION: 03/15/2018 HEMATOLOGY/ONCOLOGY CONSULTATION CONSULTING PHYSICIAN: Meño Macias M.D. REQUESTING PHYSICIAN: Morales Tejeda M.D. REASON FOR CONSULTATION: Leukocytosis. IDENTIFYING DATA: Dear Dr. Tejeda, The patient is a pleasant 77-year-old male with past medical history which is significant for history of depression. Most of the history obtained from the medical chart, history of encephalopathy at this time presents with increased headache, combativeness, agitation. Approximate onset 5 o'clock in the morning two days ago, worsening headache, increasingly confused, has been seen by Psychiatry team, has been started on Risperdal, Ativan, and Haldol. MRI of the brain has been obtained. The patient does have leukocytosis therefore Hematology Service consulted for further evaluation and treatment. He is on broad-spectrum antibiotics, pending at this time and has been started on prednisone and has developed leukocytosis. PAST MEDICAL HISTORY: COPD, diabetes mellitus, nicotine dependence, history of lung surgery, partial lobectomy right lung. ALLERGIES: No known drug allergies. MEDICATIONS: Ceftriaxone, Reglan, morphine, albuterol, Atrovent, dexamethasone. SOCIAL HISTORY: . Smoker. Lives at home. REVIEW OF SYSTEMS: CONSTITUTIONAL: Frontal headaches, difficulty breathing. No fevers, chills, or night sweats. The patient . No chest pain. SKIN: No rashes, bumps, or itching. HEENT: No headache, hearing or visual changes. BREASTS: No lumps, pain, or discharge. PULMONARY: No , sputum, or shortness of breath. GASTROINTESTINAL: No nausea, vomiting, or diarrhea. GENITOURINARY: No dysuria, frequency, or urgency. MUSCULOSKELETAL: No joint swelling, muscle pain, or trauma. PHYSICAL EXAMINATION: VITAL SIGNS: Reviewed. GENERAL: No acute distress. PULMONARY: Decreased breath sounds. CARDIOVASCULAR: Regular rate. No S3 or S4. ABDOMEN: Soft, nontender, and nondistended. EXTREMITIES: No cyanosis noted. LABORATORY AND DIAGNOSTIC DATA: WBC 15.7, hemoglobin 14, hematocrit of 42, platelet count 282,000. INR of 1. BUN of 19 and creatinine 1.3. ASSESSMENT AND RECOMMENDATIONS: 1. Leukocytosis secondary to underlying prednisone use for COPD exacerbation. Closely monitor as per primary team. In addition, Dr. Casanova has been consulted. 2. Anemia due to underlying chronic disease. Closely monitor, borderline at this time. 3. Acute headache. Psychiatry team as well as pain management has been consulted. 4. Altered mental status, rule out infectious etiology. Brain scan pending, MRI of the brain. 5. COPD exacerbation and/or pneumonia. Chest x-ray normal. 6. Nicotine dependence, currently is not having any nicotine withdrawal. Consider use of nicotine gum. Meño Macias M.D. DR: Anila JOB#: [id number] CC:
--- NOTE | 2018-03-15 18:30 | Consultation ---
DATE OF CONSULTATION: 03/15/2018 PAIN MANAGEMENT CONSULTATION CONSULTING PHYSICIAN: Frederic Marquez M.D. REFERRING PHYSICIAN: Morales Tejeda M.D. PHYSICIAN DISH WASHER: Kristina Suarez CHIEF COMPLAINT: Headache. HISTORY OF PRESENT ILLNESS: This is a 77-year-old male, who is being seen on the telemetry floor of [facility] for initial pain management consultation. The patient was admitted under the care of Dr. Tejeda from the emergency room complaining with severe headaches for two days and became altered while on the hospital floor in the telemetry unit. Psychiatrist came and seen the patient and put him in restraints, started him on Ativan and Haldol as needed for anxiety and agitation. At this time, he is awake, oriented and conversive. No longer complaining of headaches. In the emergency room, the patient received morphine 2 mg IV one time dose. When brought to the floor was started on morphine 1 mg IV every 4 hours as needed. However the patient has not received any morphine while on the floor here in the hospital on the telemetry floor. He has a history of smoking and continues to smoke. He has history of lung surgery with resection and has a history of transient ischemic attack. At this time, the patient is waiting for neuro consultation as per aerial lineman which we recommend and shows no signs of pain or distress. We were consulted so that the patient will have adequate control while here in the hospital. PAST MEDICAL HISTORY: As per chart diabetes, COPD, hyperlipidemia, hypertension, TIA. PAST SURGICAL HISTORY: Skin cancer surgery and right upper lobectomy. SOCIAL HISTORY: Smoker. Denies alcohol and IV drug abuse. ALLERGIES: No known drug allergies. MEDICATIONS: Lipitor and Viagra. REVIEW OF SYSTEMS: Denies rash, fever, chills, sweating, dizziness, drowsiness, blurred vision, sore throat, change in weight. No shortness of breath or chest pain. No nausea, vomiting, diarrhea, or blood in the stool or urine. No bowel or bladder incontinence. No dysuria. PHYSICAL EXAMINATION: GENERAL: Alert, awake, and oriented. VITAL SIGNS: Blood pressure 160/83, heart rate 72, oxygen saturation 98%, respiratory rate is 18, and temperature is 97 degrees Fahrenheit. HEENT: PERRLA. NECK: Range of motion is full in all directions. No tenderness to paracervical muscles. No adenopathy. LUNGS: Decreased breath sounds bilaterally. HEART: Regular. ABDOMEN: Benign. BACK: Range of motion is full in flexion and extension. EXTREMITIES: Upper extremity and lower extremity range of motion is full in all directions. No cyanosis. No clubbing. No edema. Sensory is intact. Reflexes are not obtainable. No adenopathy. ASSESSMENT AND PLAN: The patient is a 77-year-old male with acute headache which is now resolved, altered mental status. At this time, the patient will be discontinued off the morphine. Continue recommendations as per the psychiatrist, irrigation tax assessor collector, and Infectious Diseases doctor. Recommend Neurology consultation as per aerial lineman. The patient was discussed with Dr. Marquez and he concurred. We will follow the patient. Thank you very much for the courtesy of this consultation. Frederic Marquez M.D. SARA Suarez DR: Jose JOB#: [id number] CC: DANIAL
[2018-03-15 20:00] VITALS: BP 111/62
--- NOTE | 2018-03-15 20:15 | Consultation ---
DATE OF CONSULTATION: 03/15/2018 PULMONARY CONSULTATION: CONSULTING PHYSICIAN: Nas Casanova M.D. REFERRING PHYSICIAN: Morales Tejeda M.D. REASON FOR CONSULTATION: COPD. HISTORY OF PRESENT ILLNESS: The patient is a male, current daily smoker with a history of lung cancer, status post resection in the past and COPD, unclear what inhaler regimen he is on, who was admitted with headache. He has a history of TIA and stroke in the past as well. He had altered mental status and confusion. He came to the ER with a white count of 15.7. His gas exchange is 7.43/34/70 and the remainder of his labs were essentially unremarkable except for some elevated blood sugar. He does have a known history of diabetes and he had an opiate screen that was positive. He has been afebrile. Vital signs have been stable. He has been saturating well and he had a hypertensive urgency, which since has improved. CT of the head was done, which showed atrophy, but no acute findings. There were chronic small vessel changes. The patient also had an MRI of the brain done that showed no acute findings except for the mild atrophy as stated above. Chest x-ray is unremarkable and the patient is a poor historian. His is not able to provide any further history either. It is unclear what the etiology of his lung cancer was and how it was resected or what kind of treatment. I reviewed link as well and no records were available. Nonetheless, the patient is admitted for altered mental status evaluation and COPD exacerbation. He is being seen for his cough and shortness of breath. He states the cough is better. Denies any consistent shortness of breath. No wheezing. No fevers or chills. He states headache is better. Per his , he is more alert, but he is still confused at the time of my evaluation. PAST MEDICAL HISTORY: 1. Hypertension. 2. Lung cancer. 3. COPD. 4. Current daily smoker. 5. Diabetes. 6. History of TIA in the past. PAST SURGICAL HISTORY: Resection of lung cancer, details unknown. ALLERGIES: No known drug allergies. MEDICATIONS: Prior to admission, medications reviewed. Current medications reviewed. SOCIAL HISTORY: Current daily smoker. No drug or alcohol use. FAMILY HISTORY: Noncontributory. REVIEW OF SYSTEMS: Negative other than history of present illness. PHYSICAL EXAMINATION: VITAL SIGNS: Temperature 97.7, pulse 79, blood pressure 150/90, respiratory rate 20, and saturating 98% on room air. GENERAL: This is an elderly male in no acute distress. Awake, alert, and oriented x3. HEENT: Normocephalic, atraumatic. Oropharynx clear with moist mucous membranes. NECK: Supple without lymphadenopathy. CHEST: Scattered coarse breath sounds. Distant. HEART: Regular rate and rhythm. ABDOMEN: Soft, nontender, and nondistended. EXTREMITIES: No cyanosis, clubbing, or edema. ANCILLARY DATA: Laboratories reviewed. Imaging reviewed. ASSESSMENT: The patient is a 77-year-old male with a history of COPD; current daily smoker; lung cancer, status post resection in the past; diabetes; hypertension; and TIA presenting with altered mental status and headache. Noted to have leukocytosis and hypertensive urgency. He is being treated empirically for respiratory infection though his respiratory status per his is at baseline except for some increased cough prior to coming in. It is unclear if this is an acute exacerbation of COPD or not. PROBLEM LIST: 1. COPD with possible acute exacerbation. 2. History of lung cancer, status post resection, details unknown. 3. Current daily smoker. 4. Altered mental status. 5. Headache. 6. History of TIA in the past. 7. Leukocytosis 8. Diabetes. 9. Hypertension with hypertensive urgency. TREATMENT PLAN: 1. Optimize pulmonary hygiene/mobilize as tolerated. 2. Prednisone 40 mg (today is day #2). 3. Lsvgq-bpu-gugna and p.r.n. DuoNebs. 4. Continue azithromycin and Rocephin per Infectious Disease service. 5. Consider neurologic evaluation. 6. The patient needs a lumbar puncture. 7. Monitor volumes, blood pressure, and renal function. 8. DVT prophylaxis. We will start heparin subcutaneous. 9. Nicotine patch ordered. 10. Encourage cessation from tobacco use. Nas Casanova M.D. DR: VALERIA JOB#: [id number] CC:
[2018-03-15] MEDS: Tamsulosin 0.4mg cap ORAL SCH (20:59)
--- NOTE | 2018-03-15 21:00 | Consultation ---
DATE OF CONSULTATION: 03/15/2018 CARDIOLOGY CONSULTATION CONSULTING PHYSICIAN: Roni Horn M.D. REFERRING PHYSICIAN: Morales Tejeda M.D. REASON FOR CONSULTATION: Tachycardia and altered mental status. HISTORY OF PRESENT ILLNESS: The patient is a 77-year-old gentleman who was brought to the hospital for headache and altered mental status. The patient has history of headache and sinusitis in the past. The patient also has history of COPD, diabetes, nicotine dependence, and history of partial lobectomy in the right lung. At the time of my evaluation, the patient is altered, and is unable to provide any information. REVIEW OF SYSTEMS: Cannot be obtained. ALLERGIES: He has no known drug allergies. MEDICATIONS: Per reconciliation. SOCIAL HISTORY: He is . Lives at home. Does not smoke. PHYSICAL EXAMINATION: VITAL SIGNS: Show blood pressure of 158/90, pulse is 86, and respirations 20. HEAD AND NECK: Shows no JVD. LUNGS: Coarse rhonchi. CARDIOVASCULAR: Shows regular S1 and S2 with no gallop or murmur. ABDOMEN: Soft. EXTREMITIES: With no pitting edema. LABORATORY AND DIAGNOSTIC STUDIES: EKG shows sinus rhythm with old inferior wall myocardial infarction. Labs show white count of 15.7, hemoglobin of 14.4, hematocrit of 43, and platelet count of 382,000. Sodium 138, potassium 3.8, BUN of 19, and creatinine 1.3. Troponin is negative. Glucose is 158. Urine toxicology screen is positive for opiates. ASSESSMENT AND PLAN: 1. Hypertension. The patient is on lisinopril 10 mg daily and Norvasc 10 mg daily, that will be continued. The patient is also on p.r.n. hydralazine. 2. Altered mental status. LP is pending. CT of the brain showed no acute intracranial bleed, mass effect, or edema. MRI of the brain also showed no acute intracranial findings. Further evaluation by Neurology. 3. Chronic obstructive pulmonary disease. 4. Diabetes. 5. Nicotine dependence. 6. History of lung surgery, lobectomy. Thank you very much, Dr. Tejeda, for allowing me to participate in the care of this patient. Please do not hesitate to contact if any questions regarding my evaluation. Roni Horn M.D. DR: ANGIE JOB#: [id number] CC:
--- NOTE | 2018-03-15 22:49 | General Progress Note ---
Assessment/Plan Problem List: (1) encephalopathy due to toxin Status: stable, progressing Assessment/Plan haldol prn ativan prn risperdal 1mg po qhs mri of brain without contrast wnl cbc with diff lumbar puncture Subjective Neurologic/Psychiatric: Reports: anxiety, depressed Allergies: Coded Allergies: No Known Allergies (Unverified , 04/16/12) Subjective the pt was combative last night. refused risperdal and was confused. he was given im meds. today more alert and less confused. Objective Last 24 Hour Vital Signs Date Time Temp Pulse Resp B/P (MAP) Pulse Ox O2 Delivery O2 Flow Rate FiO2 03/15/18 21:00 Room Air 03/15/18 20:00 97.9 80 18 111/62 (78) 92 03/15/18 20:00 84 03/15/18 19:42 84 20 99 Room Air 21 03/15/18 19:35 76 20 94 Room Air 21 03/15/18 16:00 75 03/15/18 16:00 97.5 85 18 120/71 (87) 97 03/15/18 13:32 86 20 99 Room Air 21 03/15/18 13:25 72 18 96 Room Air 21 03/15/18 13:00 158/90 03/15/18 12:00 75 03/15/18 12:00 97.7 79 20 158/90 (112) 98 03/15/18 09:00 Room Air 03/15/18 08:30 72 160/83 03/15/18 08:11 77 18 98 Room Air 03/15/18 08:05 79 16 97 Room Air 21 03/15/18 08:00 97.5 70 20 160/83 (108) 98 03/15/18 08:00 74 03/15/18 04:00 75 03/15/18 04:00 97.0 74 18 123/67 (85) 93 03/15/18 01:43 70 18 98 Room Air 03/15/18 01:30 68 16 95 Room Air 21 03/15/18 00:00 78 Intake and Output 03/14/18 03/15/18 19:00 07:00 # Voids 5 2 Laboratory Tests 03/15/18 14:50: C-Reactive Protein, Quantitative < 0.4 Height (Feet): 5 Height (Inches): 8.00 Weight (Pounds): 168 General Appearance: alert, confused Neurologic: responsive, depressed affect My Galindo MD Mar 15, 2018 22:49
[2018-03-16] VITALS: BP 131/84
[2018-03-16] MEDS: Albuterol/Ipratropium 3ml neb HHN SCH ×3 (01:48→12:36)
[2018-03-16 04:00] VITALS: BP 112/61
[2018-03-16] MEDS: cefTRIAXone 1 GM in D5W 55 ML IVPB SCH (05:37)
[2018-03-16] MEDS: NovoLOG Insulin Flexpen SUBQ SCH ×2 (05:44→12:00)
--- NOTE | 2018-03-16 06:30 | General Progress Note ---
Assessment/Plan Status: stable Assessment/Plan 1. Leukocytosis secondary to underlying prednisone use for COPD exacerbation. --> Cont to closely monitor as per primary team. --> Pt on steroids --> Pt has been started on abx --> ID is following, appreciate recs 2. Anemia due to underlying chronic disease, mild. --> Cont to closely monitor for stability 3. Acute headache. Psychiatry team as well as pain management is follwoing, appreciate recs. 4. Altered mental status, rule out infectious etiology. --> Brain scan pending, --> MRI of the brain is unremarkable 5. COPD exacerbation and/or pneumonia. --> Chest x-ray normal. --> Dr. Casanova has been is following, appreciate recs --> Prednisone 40 mg (today is day #2). --> Pwohc-ooh-ovmgh and p.rzak Lopez 6. Nicotine dependence, currently is not having any nicotine withdrawal. Consider use of nicotine gum. GREATLY APPRECIATE CONSULTATION. Subjective Date patient seen: Mar 16, 2018 Hematologic/Lymphatic: Reports: anemia Allergies: Coded Allergies: No Known Allergies (Unverified , 04/16/12) All Systems: reviewed and negative except above Subjective Pt is awake and alert. No acute events. Pt is refusing EKG. Objective Last 24 Hour Vital Signs Date Time Temp Pulse Resp B/P (MAP) Pulse Ox O2 Delivery O2 Flow Rate FiO2 03/16/18 04:00 99 03/16/18 04:00 97.5 95 18 112/61 (78) 93 03/16/18 01:54 90 20 99 Room Air 03/16/18 01:46 90 20 94 Room Air 03/16/18 00:00 97 03/16/18 00:00 97.2 93 18 131/84 (100) 94 03/15/18 21:00 Room Air 03/15/18 20:00 97.9 80 18 111/62 (78) 92 03/15/18 20:00 84 03/15/18 19:42 84 20 99 Room Air 21 03/15/18 19:35 76 20 94 Room Air 21 03/15/18 16:00 75 03/15/18 16:00 97.5 85 18 120/71 (87) 97 03/15/18 13:32 86 20 99 Room Air 21 03/15/18 13:25 72 18 96 Room Air 21 03/15/18 13:00 158/90 03/15/18 12:00 75 03/15/18 12:00 97.7 79 20 158/90 (112) 98 03/15/18 09:00 Room Air 03/15/18 08:30 72 160/83 03/15/18 08:11 77 18 98 Room Air 21 03/15/18 08:05 79 16 97 Room Air 21 03/15/18 08:00 97.5 70 20 160/83 (108) 98 03/15/18 08:00 74 Intake and Output 03/15/18 03/16/18 19:00 07:00 Intake Total 360 ml Balance 360 ml Intake Oral 360 ml # Voids 3 Laboratory Tests 03/15/18 14:50: C-Reactive Protein, Quantitative < 0.4 Height (Feet): 5 Height (Inches): 8.00 Weight (Pounds): 168 Objective PHYSICAL EXAMINATION: VITAL SIGNS: Reviewed. GENERAL: No acute distress. PULMONARY: Decreased breath sounds. CARDIOVASCULAR: Regular rate. No S3 or S4. ABDOMEN: Soft, nontender, and nondistended. EXTREMITIES: No cyanosis noted. Meño Macias MD Mar 16, 2018 06:30
[2018-03-16 08:00] VITALS: BP 141/81
[2018-03-16] MEDS: Aspirin Baby 81mg ORAL SCH (08:44)
[2018-03-16] MEDS: Azithromycin 250mg tab ORAL SCH (08:45)
[2018-03-16] MEDS ORDERED: Lisinopril 10mg tab ORAL SCH (09:00)
[2018-03-16 09:41] LABS: BASOPHILS % (AUTO) 0.4 % (0.0-2.0); EOSINOPHILS % (AUTO) 0.2 % (0.0-3.0); HEMATOCRIT 42.2 % (42.0-52.0); HEMOGLOBIN 14.3 G/DL (14.2-18.0); LYMPHOCYTES % (AUTO) 20.8 % (20.0-45.0); MEAN CORPUSCULAR VOLUME 88 FL (80-99); MONOCYTES % (AUTO) 8.2 % (1.0-10.0); NEUTROPHILS % (AUTO) 70.4 % (45.0-75.0); PLATELET COUNT 372 K/UL (150-450); RED BLOOD COUNT 4.77 M/UL (4.70-6.10); RED CELL DISTRIBUTION WIDTH 11.7 % (11.6-14.8); WHITE BLOOD COUNT 14.2 K/UL (4.8-10.8)
[2018-03-16 10:01] LABS: ALANINE AMINOTRANSFERASE 16 U/L (12-78); ALBUMIN 3.4 G/DL (3.4-5.0); ALBUMIN/GLOBULIN RATIO 0.8 (1.0-2.7); ALKALINE PHOSPHATASE 120 U/L (46-116); ANION GAP 12 mmol/L (5-15); ASPARTATE AMINO TRANSFERASE 15 U/L (15-37); BILIRUBIN,TOTAL 0.4 MG/DL (0.2-1.0); BLOOD UREA NITROGEN 29 mg/dL (7-18); CALCIUM 9.3 MG/DL (8.5-10.1); CARBON DIOXIDE 26 MMOL/L (21-32); CHLORIDE 102 MMOL/L (98-107); CHOLESTEROL 252 MG/DL (< 200); CREATININE 1.1 MG/DL (0.55-1.30); HDL CHOLESTEROL 40 MG/DL (40-60); PHOSPHORUS 3.5 MG/DL (2.5-4.9); POTASSIUM 3.3 MMOL/L (3.5-5.1); SODIUM 140 MMOL/L (136-145); TRIGLYCERIDES 221 MG/DL (30-150)
--- NOTE | 2018-03-16 11:53 | Diagnostic Imaging Report ---
APPROVED REPORT CPT Code: 99142 Vascular Symptoms Syncope Comments: SYNCOPE. Doppler Spectral Velocity Analysis RightLeft RIGHT SIDE: ECA/BULB- Imaging reveals irregular, minimal plaque in the carotid bulb and internal carotid arteries and carotid arteries. VERTEBRAL - The vertebral artery is patent, without evidence of stenosis or steal. LEFT SIDE: CCA - Imaging reveals no significant plaque within the extracranial carotid arteries. The Doppler spectral flow analysis is within normal limits throughout the extracranial carotid arteries. VERTEBRAL - The vertebral artery is within normal limits.
[2018-03-16 12:00] VITALS: BP 120/71
--- NOTE | 2018-03-16 12:23 | Cardiac Electrophysiology PN ---
Assessment/Plan Assessment/Plan 1. Hypertension. The patient is on lisinopril 10 mg daily and Norvasc 10 mg daily and p.r.n. hydralazine. 2. Altered mental status. Refused LP. CT of the brain showed no acute intracranial bleed, mass effect, or edema. MRI of the brain also showed no acute intracranial findings. Further evaluation by Neurology. 3. Chronic obstructive pulmonary disease. 4. Diabetes. 5. Nicotine dependence. 6. History of lung surgery Wants to leave. Signing AMA Subjective Subjective Remained in SR overnight. No CP or SOB. Wants to go home. Objective Last 24 Hour Vital Signs Date Time Temp Pulse Resp B/P (MAP) Pulse Ox O2 Delivery O2 Flow Rate FiO2 03/16/18 09:00 Room Air Room Air 03/16/18 08:45 141/81 03/16/18 08:45 89 141/81 03/16/18 08:00 88 03/16/18 08:00 97.7 89 20 141/81 (101) 92 03/16/18 07:00 Room Air 03/16/18 07:00 Room Air 03/16/18 04:00 99 03/16/18 04:00 97.5 95 18 112/61 (78) 93 03/16/18 01:54 90 20 99 Room Air 21 03/16/18 01:46 90 20 94 Room Air 21 03/16/18 00:00 97 03/16/18 00:00 97.2 93 18 131/84 (100) 94 03/15/18 21:00 Room Air 03/15/18 20:00 97.9 80 18 111/62 (78) 92 03/15/18 20:00 84 03/15/18 19:42 84 20 99 Room Air 21 03/15/18 19:35 76 20 94 Room Air 21 03/15/18 16:00 75 03/15/18 16:00 97.5 85 18 120/71 (87) 97 03/15/18 13:32 86 20 99 Room Air 21 03/15/18 13:25 72 18 96 Room Air 21 03/15/18 13:00 158/90 Intake and Output 03/15/18 03/16/18 19:00 07:00 Intake Total 360 ml 175 ml Balance 360 ml 175 ml Intake Oral 360 ml 120 ml IV Total 55 ml # Voids 3 3 Laboratory Tests Test 03/15/18 14:50 03/16/18 07:10 C-Reactive Protein, Quantitative < 0.4 mg/dL (0.00-0.90) White Blood Count 14.2 K/UL (4.8-10.8) H Red Blood Count 4.77 M/UL (4.70-6.10) Hemoglobin 14.3 G/DL (14.2-18.0) Hematocrit 42.2 % (42.0-52.0) Mean Corpuscular Volume 88 FL (80-99) Mean Corpuscular Hemoglobin 30.0 PG (27.0-31.0) Mean Corpuscular Hemoglobin Concent 33.9 G/DL (32.0-36.0) Red Cell Distribution Width 11.7 % (11.6-14.8) Platelet Count 372 K/UL (150-450) Mean Platelet Volume 5.1 FL (6.5-10.1) L Neutrophils (%) (Auto) 70.4 % (45.0-75.0) Lymphocytes (%) (Auto) 20.8 % (20.0-45.0) Monocytes (%) (Auto) 8.2 % (1.0-10.0) Eosinophils (%) (Auto) 0.2 % (0.0-3.0) Basophils (%) (Auto) 0.4 % (0.0-2.0) Sodium Level 140 MMOL/L (136-145) Potassium Level 3.3 MMOL/L (3.5-5.1) L Chloride Level 102 MMOL/L (98-107) Carbon Dioxide Level 26 MMOL/L (21-32) Anion Gap 12 mmol/L (5-15) Blood Urea Nitrogen 29 mg/dL (7-18) H Creatinine 1.1 MG/DL (0.55-1.30) Estimat Glomerular Filtration Rate mL/min (>60) Glucose Level 122 MG/DL (74-106) H Hemoglobin A1c 7.3 % (4.3-6.0) H Uric Acid 5.2 MG/DL (2.6-7.2) Calcium Level 9.3 MG/DL (8.5-10.1) Phosphorus Level 3.5 MG/DL (2.5-4.9) Magnesium Level 2.0 MG/DL (1.8-2.4) Total Bilirubin 0.4 MG/DL (0.2-1.0) Aspartate Amino Transf (AST/SGOT) 15 U/L (15-37) Alanine Aminotransferase (ALT/SGPT) 16 U/L (12-78) Alkaline Phosphatase 120 U/L (46-116) H Troponin I 0.017 ng/mL (0.000-0.056) Pro-B-Type Natriuretic Peptide 319 pg/mL (0-125) H Total Protein 7.7 G/DL (6.4-8.2) Albumin 3.4 G/DL (3.4-5.0) Globulin 4.3 g/dL Albumin/Globulin Ratio 0.8 (1.0-2.7) L Triglycerides Level 221 MG/DL (30-150) H Cholesterol Level 252 MG/DL (< 200) H LDL Cholesterol 173 mg/dL (<100) H HDL Cholesterol 40 MG/DL (40-60) Cholesterol/HDL Ratio 6.3 (3.3-4.4) H Vitamin B12 Level 407 PG/ML (193-986) Folate 3.8 NG/ML (8.6-58.9) L Thyroid Stimulating Hormone (TSH) 2.559 uiU/mL (0.358-3.740) Microbiology Date/Time Source Procedure Growth Status 03/14/18 03:55 Nasal Nares Influenza Types A,B Antigen (SANDI) - Final Complete Objective HEAD AND NECK: No JVD. LUNGS: Coarse rhonchi. CARDIOVASCULAR: Regular S1 and S2 with no gallop or murmur. ABDOMEN: Soft. EXTREMITIES: With no pitting edema. Roni Horn MD Mar 16, 2018 12:23
--- NOTE | 2018-03-16 13:38 | Nephrology Progress Note ---
Assessment/Plan Problem List: (1) COPD exacerbation (2) Proteinuria (3) Diabetes (4) Hypertension Assessment exacerbation COPD DM HTN ooc Proteinuria (DM / HTN related) h/o TIA Plan refuses blood draw and tests Norvasc for bp add zestril lower prednisone CXR asa protonix per orders Subjective ROS Limited/Unobtainable: No Interval Events/Complaints seen at 10 am Objective Objective Last 24 Hour Vital Signs Date Time Temp Pulse Resp B/P (MAP) Pulse Ox O2 Delivery O2 Flow Rate FiO2 03/16/18 12:36 Room Air 03/16/18 12:36 Room Air 03/16/18 12:00 97.4 90 22 120/71 (87) 92 03/16/18 09:00 Room Air Room Air 03/16/18 08:45 141/81 03/16/18 08:45 89 141/81 03/16/18 08:00 88 03/16/18 08:00 97.7 89 20 141/81 (101) 92 03/16/18 07:00 Room Air 03/16/18 07:00 Room Air 03/16/18 04:00 99 03/16/18 04:00 97.5 95 18 112/61 (78) 93 03/16/18 01:54 90 20 99 Room Air 21 03/16/18 01:46 90 20 94 Room Air 21 03/16/18 00:00 97 03/16/18 00:00 97.2 93 18 131/84 (100) 94 03/15/18 21:00 Room Air 03/15/18 20:00 97.9 80 18 111/62 (78) 92 03/15/18 20:00 84 03/15/18 19:42 84 20 99 Room Air 21 03/15/18 19:35 76 20 94 Room Air 21 03/15/18 16:00 75 03/15/18 16:00 97.5 85 18 120/71 (87) 97 Laboratory Tests Test 03/15/18 14:50 03/16/18 07:10 C-Reactive Protein, Quantitative < 0.4 mg/dL (0.00-0.90) White Blood Count 14.2 K/UL (4.8-10.8) H Red Blood Count 4.77 M/UL (4.70-6.10) Hemoglobin 14.3 G/DL (14.2-18.0) Hematocrit 42.2 % (42.0-52.0) Mean Corpuscular Volume 88 FL (80-99) Mean Corpuscular Hemoglobin 30.0 PG (27.0-31.0) Mean Corpuscular Hemoglobin Concent 33.9 G/DL (32.0-36.0) Red Cell Distribution Width 11.7 % (11.6-14.8) Platelet Count 372 K/UL (150-450) Mean Platelet Volume 5.1 FL (6.5-10.1) L Neutrophils (%) (Auto) 70.4 % (45.0-75.0) Lymphocytes (%) (Auto) 20.8 % (20.0-45.0) Monocytes (%) (Auto) 8.2 % (1.0-10.0) Eosinophils (%) (Auto) 0.2 % (0.0-3.0) Basophils (%) (Auto) 0.4 % (0.0-2.0) Sodium Level 140 MMOL/L (136-145) Potassium Level 3.3 MMOL/L (3.5-5.1) L Chloride Level 102 MMOL/L (98-107) Carbon Dioxide Level 26 MMOL/L (21-32) Anion Gap 12 mmol/L (5-15) Blood Urea Nitrogen 29 mg/dL (7-18) H Creatinine 1.1 MG/DL (0.55-1.30) Estimat Glomerular Filtration Rate mL/min (>60) Glucose Level 122 MG/DL (74-106) H Hemoglobin A1c 7.3 % (4.3-6.0) H Uric Acid 5.2 MG/DL (2.6-7.2) Calcium Level 9.3 MG/DL (8.5-10.1) Phosphorus Level 3.5 MG/DL (2.5-4.9) Magnesium Level 2.0 MG/DL (1.8-2.4) Total Bilirubin 0.4 MG/DL (0.2-1.0) Aspartate Amino Transf (AST/SGOT) 15 U/L (15-37) Alanine Aminotransferase (ALT/SGPT) 16 U/L (12-78) Alkaline Phosphatase 120 U/L (46-116) H Troponin I 0.017 ng/mL (0.000-0.056) Pro-B-Type Natriuretic Peptide 319 pg/mL (0-125) H Total Protein 7.7 G/DL (6.4-8.2) Albumin 3.4 G/DL (3.4-5.0) Globulin 4.3 g/dL Albumin/Globulin Ratio 0.8 (1.0-2.7) L Triglycerides Level 221 MG/DL (30-150) H Cholesterol Level 252 MG/DL (< 200) H LDL Cholesterol 173 mg/dL (<100) H HDL Cholesterol 40 MG/DL (40-60) Cholesterol/HDL Ratio 6.3 (3.3-4.4) H Vitamin B12 Level 407 PG/ML (193-986) Folate 3.8 NG/ML (8.6-58.9) L Thyroid Stimulating Hormone (TSH) 2.559 uiU/mL (0.358-3.740) Intake and Output 03/15/18 03/16/18 18:59 06:59 Intake Total 360 ml 175 ml Balance 360 ml 175 ml Intake Oral 360 ml 120 ml IV Total 55 ml # Voids 3 3 Laboratory Tests 03/15/18 14:50: C-Reactive Protein, Quantitative < 0.4 03/16/18 07:10: White Blood Count 14.2H, Red Blood Count 4.77, Hemoglobin 14.3, Hematocrit 42.2 , Mean Corpuscular Volume 88, Mean Corpuscular Hemoglobin 30.0, Mean Corpuscular Hemoglobin Concent 33.9, Red Cell Distribution Width 11.7, Platelet Count 372, Mean Platelet Volume 5.1L, Neutrophils (%) (Auto) 70.4, Lymphocytes ( %) (Auto) 20.8, Monocytes (%) (Auto) 8.2, Eosinophils (%) (Auto) 0.2, Basophils (%) (Auto) 0.4, Sodium Level 140, Potassium Level 3.3L, Chloride Level 102, Carbon Dioxide Level 26, Anion Gap 12, Blood Urea Nitrogen 29H, Creatinine 1.1, Estimat Glomerular Filtration Rate , Glucose Level 122H, Hemoglobin A1c 7.3H, Uric Acid 5.2, Calcium Level 9.3, Phosphorus Level 3.5, Magnesium Level 2.0, Total Bilirubin 0.4, Aspartate Amino Transf (AST/SGOT) 15, Alanine Aminotransferase (ALT/SGPT) 16, Alkaline Phosphatase 120H, Troponin I 0.017, Pro -B-Type Natriuretic Peptide 319H, Total Protein 7.7, Albumin 3.4, Globulin 4.3, Albumin/Globulin Ratio 0.8L, Triglycerides Level 221H, Cholesterol Level 252H, LDL Cholesterol 173H, HDL Cholesterol 40, Cholesterol/HDL Ratio 6.3H, Vitamin B12 Level 407, Folate 3.8L, Thyroid Stimulating Hormone (TSH) 2.559 Height (Feet): 5 Height (Inches): 8.00 Weight (Pounds): 168 General Appearance: no apparent distress Objective no change José Antonio Forrest MD Mar 16, 2018 13:38
--- NOTE | 2018-03-19 09:33 | Discharge Summary ---
Discharge Summary Discharge Summary _ DATE OF ADMISSION: 03/14/2018 DATE OF DISCHARGE: 03/16/2018. Patient signed AGAINST MEDICAL ADVICE REASON FOR ADMISSION: 77 years old male with past medical history of lung cancer , status post right upper lobe resection, COPD, daily smokier, history of TIA, hypertension, diabetes mellitus, presented to emergency department with altered mental status , headache and confusion. Upon evaluation blood pressure was severely elevated 204/83. Pulse oximetry was stable on room air , and patient was afebrile. Laboratory workup revealed leukocytosis with WBC 16.7, stable hemoglobin and hematocrit. ABG was stable on room air. Glucose 158. Troponin negative. EKG revealed sinus rhythm, no acute ischemic changes. TSH was within normal limits CT of the head revealed no acute intracranial pathology . Chest x-ray revealed no acute cardiopulmonary pathology. Patient admitted with diagnoses of hypertension wirh hypertensive urgency, altered mental status, headache, leukocytosis . CONSULTANTS: hang gliding instructor Dr. Horn pulmonary Dr. Casanova ID specialist Dr. Tasha Bhat store leader Dr. Forrest yeast tender/oncologist Dr. Macias psychiatrist pain specialist Dr. Marquez [facility] COURSE: Patient admitted to telemetry floor. Operating Room Assistant closely followed. Blood pressure was managed with FLAKO inhibitor and calcium channel melissa. Blood pressure stabilized, prior to signing AMA blood pressure 120/71. Echocardiogram revealed preserved ejection fraction of 55-60% with normal wall motion abnormality, mild to moderate left ventricular hypertrophy. Carotid duplex was essentially negative. Second troponin negative as well. MRI of the brain subsequently was done and revealed no evidence of acute intracranial pathology. It showed evidence of small vessel disease, involving white matter tracts. Lipid panel revealed mixed hyperlipidemia with elevated triglyceride, elevated total cholesterol and LDL. Patient was counseled on cardiac low-cholesterol low-fat diabetic diet. Patient declined to start statin. Infectious disease specialist followed. Urinalysis was negative . Chest x-ray was negative. Patient was afebrile. Patient was placed on antibiotic for probable COPD exacerbation. Lumbar puncture was ordered. Custom Wood Stair Builder closely followed . Supplemental oxygen provided as needed to keep pulse oximetry above 92%. Pulmonary toilet provided around the clock and as needed. Patient started on oral prednisone with gradual tapering. Patient was on antibiotics ,azithromycin and Rocephin ,as per infectious disease speciaslit recommendations. Volumes and cardiorenal parameters were closely monitored. Patient was estate planning counselor on smoking cessation. Patient started on nicotine patch. X Ray Service Technician followed. Patient had a proteinuria likely secondary to diabetes mellitus versus hypertension. Electrolytes corrected as needed. Nephrotoxins were avoided. DVT and GI prophylaxis provided. Blood sugar was managed with sliding scale of insulin. Patient noted to have a mild anemia. Hemoglobin and hematocrit were closely monitored with goal to keep hemoglobin above 7, remain at baseline. Propellant Charge Zone Assembler followed. Psychiatrist seen and evaluated the patient , and diagnosed patient with encephalopathy likely due to toxin. Medication regimen optimized as per psychiatrist recommendations Mental status was slowly improving. Patient declined all further tests and blood draws, including lumbar puncture. Patient decided to sign AGAINST MEDICAL ADVICE. The risks and consequences of signing AGAINST MEDICAL ADVICE were discussed with patient in detail. Patient verbalized understanding, nevertheless signed AMA form and left. FINAL DIAGNOSES: Acute encephalopathy due to toxin Hypertension with hypertensive urgency COPD with possible exacerbation History of lung cancer, status post right lobe resection Diabetes mellitus Nicotine dependence /daily smokier Hyperlipidemia , mixed Headache , likely secondary to hypertensive urgency, resolved Leukocytosis Proteinuria , likely related to diabetes mellitus or hypertension Mild anemia I have been assigned to dictate discharge summary for this account. I was not involved in the patient's management. Brooke Granda NP Mar 19, 2018 09:33
== END 2018-03-16 12:33 | disposition left against medical advice (07) | DRG 304 ==
LOC: EMR 02:42 → 2E 05:03 → EDBEDREQ 07:37
DX: I16.0 Hypertensive urgency (principal); G92 Toxic encephalopathy; J44.1 Chronic obstructive pulmonary disease with (acute) exacerbation; Z85.118 Personal history of other malignant neoplasm of bronchus and lung; Z90.2 Acquired absence of lung [part of]; E11.9 Type 2 diabetes mellitus without complications; F17.200 Nicotine dependence, unspecified, uncomplicated; E78.2 Mixed hyperlipidemia; R51 Headache; Z86.73 Personal history of transient ischemic attack (TIA), and cerebral infarction without residual deficits; D63.8 Anemia in other chronic diseases classified elsewhere; R00.0 Tachycardia, unspecified; R09.02 Hypoxemia
CPT/HCPCS: 36415; 36600; 70450; 70551; 71045; 71250; 74230; 80053; 80061; 80307; 81001; 82607; 82746; 82803; 82962; 83036; 83735; 83880; 84100; 84443; 84484; 84550; 85025; 85610; 85651; 85730; 86140; 86710; 93005; 93306; 93880; 94640; 94664; 96365; 96375; 99285; J1815; J2765; J7620; J8499